=== PATIENT | male | born 1975 | race Caucasian/White ===

== ENCOUNTER 2019-05-13 11:39 | Inpatient (IN) | payer BC ==
[~2019-05-13] VITALS: Ht 182.9 cm; Wt 130.3 kg
[2019-05-13 13:22] LABS: HEMATOCRIT 45.4 % (42.0-52.0); HEMOGLOBIN 16.2 gm/dL (14.0-18.0); MCH 29.7 pg (26.0-34.0); MCHC 35.7 g/dL (28.0-37.0); MCV 83.2 fL (80.0-100.0); MPV 8.4 fl. (7.2-11.1); RBC 5.46 mil/uL (4.50-6.00); RDW-CV 13.4 % (10.5-14.5); WBC 7.6 thou/uL (4.0-11.0)
[2019-05-13 13:32] VITALS: BP 123/90
[2019-05-13 13:32] LABS: APTT 29.8 Seconds (25.0-31.3); PROTIME 10.7 Seconds (9.20-11.50)
[2019-05-13 13:34] LABS: ANION GAP 9 mmol/L (7-16); BUN 10 mg/dL (7-18); CALCIUM 9.2 mg/dL (8.5-10.1); CHLORIDE 105 mmol/L (98-107); CO2 27 mmol/L (21-32); CREATININE 1.1 mg/dL (0.6-1.3); GLUCOSE 90 mg/dL (70-99); POTASSIUM 3.9 mmol/L (3.5-5.1); SODIUM 141 mmol/L (136-145)
[2019-05-13 13:38] LABS: ALBUMIN 4.1 g/dL (3.4-5.0); ALKALINE PHOSPHATASE 89 U/L (46-116); MAGNESIUM 2.1 mg/dL (1.8-2.4); SERUM ASSESSMENT Clear; SGOT 16 U/L (15-37); SGPT 36 U/L (30-65); TOTAL BILIRUBIN 0.8 mg/dL (<0.1-1.0); TOTAL PROTEIN 7.7 g/dL (6.4-8.2)
[2019-05-13 13:45] LABS: URINE BILIRUBIN NEGATIVE (Negative); URINE BLOOD NEGATIVE (Negative); URINE CLARITY CLEAR; URINE COLOR YELLOW; URINE GLUCOSE-RANDOM NEGATIVE (Negative); URINE KETONES NEGATIVE (Negative); URINE LEUKOCYTES NEGATIVE (Negative); URINE NITRITE NEGATIVE (Negative); URINE PROTEIN NEGATIVE (Negative); URINE UROBILINOGEN 0.2 E.U./dl (0.2-1.0)
[2019-05-13 13:49] LABS: CHOLESTEROL 156 mg/dL (<200); HDL CHOLESTEROL 53 mg/dL (>40); LDL CHOLESTEROL 86 mg/dL (<100); TC:HDL 2.9 Ratio (Not establshd); TRIGLYCERIDE 88 mg/dL (<150); VLDL 18 mg/dL (<40)
--- NOTE | 2019-05-13 14:22 | EKG ---
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
--- NOTE | 2019-05-13 14:55 | NUR ---
PT ORIENTED TO ROOM AND UNIT. BED LOW AND LOCKED, SIDE RIALS UP X3, CALL LIGHT IN REACH. TELE APPLIED AND ALL DOCUMENTS SIGNED. WILL CONTINUE TO ASSESS.
[2019-05-13 17:19] VITALS: BP 122/81
--- NOTE | 2019-05-13 18:09 | NUR ---
PT REFUSES SCDS, IS ON ORAL AC.
[2019-05-13 20:00] VITALS: BP 114/82
[2019-05-13 23:08] LABS: GLYCOHEMOGLOBIN (HGB A1C) 5.3 % (4.8-5.6)
[2019-05-14 00:35] VITALS: BP 94/57
[2019-05-14 04:00] VITALS: BP 91/54
--- NOTE | 2019-05-14 05:23 | NUR ---
START OF SHIFT FAMILY AT BEDSIDE, PT UP VISITING WITHOUT COMPLAINT. NPO AFTER 0000 FOR STRESS TEST AND CARDIOVERSION D/T AFLUTTER. NO C/O PAIN OR DISCOMFORT NOTED BY PT. CURRENTLY ASLEEP IN BED WITH CALL LIGHT WITHIN REACH.
[2019-05-14 07:23] VITALS: BP 101/62
[2019-05-14 11:30] VITALS: BP 106/66
--- NOTE | 2019-05-14 12:26 | NUR ---
MET WITH PT TO DISCUSS HOME SITUATION/DC PLANNING. PT LIVES WITH , IS INDEPENDENT AND ACTIVE. 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 HE DOESN'T USE ANY EQUIPMENT AND HASN'T HAD HH. PLANS TO RETURN HOME AT DC. DENIES NEEDS. WILL FOLLOW
--- NOTE | 2019-05-14 12:50 | NUR ---
PT OFF UNIT FOR STRESS TEST.
--- NOTE | 2019-05-14 14:32 | EKG ---
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
--- NOTE | 2019-05-14 15:55 | NUR ---
PT RETURNED TO UNIT ANS PLACED BACK ON TELE.
[2019-05-14 16:00] VITALS: BP 114/74
--- NOTE | 2019-05-14 17:51 | NUR ---
PT C/O 11/22 HEADACHE, SPOUSE CONCERNED OF RISK FOR CVA. PT IS IN CONTROLLED AFLUTTER AND ACTICOAGULATED ON XARELTO. CONTACT DR. LAW AND INSTRUCTED TO GET NONCONTRAST CT OF THE HEAD AND CONSULT NEUROLOGY. WILL TRANSPORT PT TO CT AND CONTINUE TO ASSESS.
[2019-05-14 20:10] VITALS: BP 112/59
[2019-05-15] VITALS (16 sets, daily range): BP systolic 103–132; BP diastolic 37–101
--- NOTE | 2019-05-15 05:12 | NUR ---
PT CARE ASSUMED AT 1930. SAT MAINTAINED IN RA. ALERT AND ORIENTED X4. CALL LIGHT WITHIN REACH AND BED IN LOW POSITION. DENIES PAIN AND SOB. HOURLY ROUNDING DONE FOR PT SAFETY.
[2019-05-15] MEDS ORDERED: SORINE 80 MG TA80 M1 PO (10:15)
[2019-05-15] MEDS ORDERED: ELIQUIS5 MG PO (10:15)
--- NOTE | 2019-05-15 10:15 | CARDNUC ---
[place] [address] CARDIAC NUCLEAR IMAGING REPORT Name: CHRISTY MONROE Room: [address] IN [facility]#: [id number] Admission: 05/13/19 Attend Phys: Avel Trejo Discharge: Date of : 71 Date of Service: 05/15/19 1015 Report #: [id number] THIS REPORT FOR: //name// APPROVED REPORT Study performed: 05/13/2019 14:43:00 Indication: 225 Patient Location: In-Patient Room #: 225 Stress Tech: Radha Khan Stress Nurse: Carole Chairez RN NM Tech:SIMON Cooley Ht: 6 ft 0 in Wt: 285 lbs BSA: 2.48 m2 BMI: 38.64 Medical History Medical History: Angina, No history of CAD, Obesity , Aflutter, Lightheaded/Dizziness, Diaphoresis, RVR, SOB. Medications: Eliquis, Sotolol. Allergies: No known drug allergies Cardiac Risk Factors: Age, SOB, Aflutter, RVR. Previous Cardiac Procedures: None Pretest Chest Pain Characteristics: No chest pain Exercise History: Physically active Physical Disabilities: Aflutter/RVR Meds Held (24 hrs): None Resting Data Rest SPECT myocardial perfusion imaging was performed in supine position 30 minutes following the intravenous injection of 35.5 mCi of Tc-99m Sestamibi. Time of rest injection: 08:20 The images were gated to evaluate regional wall motion and calculate left ventricular ejection fraction. Administration Route: IV Administration Site: Right Arm Pharmacologic Stress Pharmacologic stress test was performed by injecting Regadenoson 0.4 mg IV push over 10-15 seconds immediately followed by the intravenous injection of 34.2 mCi of Tc-99m Sestamibi. Time of stress injection: 1335 Date: 05/14/2019 Administration Route: [place] [address] CARDIAC NUCLEAR IMAGING REPORT Name: CHRISTY MONROE Room: [address] IN [facility].#: [id number] Admission: 05/13/19 Attend Phys: Avel Trejo Discharge: Date of : 71 Date of Service: 05/15/19 1015 Report #: [id number] Administration Site: Right Arm Gated Stress SPECT was performed 40 minutes after stress injection. The images were gated to evaluate regional wall motion and calculate left ventricular ejection fraction. Prone imaging was performed. Stress Test Details Stress Test: Pharmacologic stress testing performed using 0.4 mg of regadenoson per 5 mL given IV over 10 seconds. Reason for pharmacologic stress test: Aflutter, RVR.. HR Max Heart Rate (APMHR): 175 bpm Resting HR: 75 bpm Target HR (85% APMHR): 148 bpm Max HR Achieved: 133 bpm % of APMHR: 76 Recovery HR: 105 bpm BP Resting BP: 120/80 mmHg Max BP: 116/92 mmHg Recovery BP: 115/88 mmHg ECG Resting ECG: Atrial Flutter Stress ECG: Atrial Flutter ST Change: None Recovery ECG: Atrial Flutter Recovery ST Change: None Clinical Reason for Termination: Completed protocol Stress Symptoms: Difficulty breathing, Feet tingling, Thighs achy, Dizziness/Lightheaded. Exercise duration: 00 min 00 sec Exercise capacity: 1.00 METs The patient tolerated Lexiscan infusion without significant cardiac symptoms. Nurse Comments A 43 year old male inpatient presented for sitting Lexiscan r/t new onset Aflutter/RVR with dizziness and diaphoresis. Patient tolerated test well. Recovery unremarkable with PO caffeine, effective. Patient was escorted by staff to Nuclear Medicine for images. Patient was stable with no complaints at that time[place] [address] CARDIAC NUCLEAR IMAGING REPORT Name: CHRISTY MONROE Room: [address]#: [id number] Admission: 05/13/19 Attend Phys: Avel Trejo Discharge: Date of : 71 Date of Service: 05/15/19 1015 Report #: [id number] The baseline 12-lead EKG shows atrial flutter with 3-1 conduction. EKGs obtained during and post Lexiscan infusion show atrial flutter with 2131 conduction. There were no significant ST segment changes noted. Study Quality Study: Good Artifact: Mild Diaphragmatic artifact Study Data At rest, the left ventricular ejection fraction was 43%.. Post stress, the left ventricular ejection was 51%.. TID = 1.00. Perfusion Perfusion images obtained in the supine position at rest and post Lexiscan stress show a moderate region of mild photopenia in the inferior wall that resolves completely with post stress prone imaging suggesting diaphragmatic attenuation artifact. No other significant fixed or reversible defects were noted. Wall Motion There is mild global hypokinesis. Left ventricular systolic function mildly decreased. Nuclear Conclusion ECG Findings: negative for ischemia Clinical Findings: negative for ischemia Nuclear Findings: negative for ischemia Exercise Capacity: not assessed Left Ventricular Function: abnormal Risk Study: low Myocardial perfusion images show no defect to suggest infarct or ischemia. Left ventricular systolic function is mildly decreased. This is not a high risk study. <Conclusion> The baseline 12-lead EKG shows atrial flutter with 3-1 conduction. EKGs obtained during and post Lexiscan infusion show atrial flutter with 2131 conduction. There were no significant ST segment changes noted. <ELECTRONICALLY SIGNED> By: Morgan Gutiérrez MD, FACC 05/15/19 1015 1015 1015 Morgan Gutiérrez MD, FACC /INF
--- NOTE | 2019-05-15 10:51 | TEE ---
[place] [address] TRANSESOPHAGEAL ECHOCARDIOGRAM Name: CHRISTY MONROE Room: [address] IN [facility]#: [id number] Admission: 05/13/19 Attend Phys: Avel Trejo Discharge: Date of : 71 Date of Service: 05/15/19 1051 Report #: [id number] THIS REPORT FOR: //name// APPROVED REPORT Study performed: 05/15/2019 09:32:02 EXAM: Comprehensive 2D, Doppler, and color-flow Echocardiogram Patient Location: In-Patient Room #: [facility] Status: routine BSA: 2.48 HR: 108 bpm BP: 132/101 mmHg Rhythm: Atrial Flutter Other Information Study Quality: Good Indications Atrial Fibrillation Echo Enhancing Agent Indication: Rule out Shunt Agent(s) / Amount(s) Used: Agitated Saline 10 cc Procedure After obtaining informed consent, patient underwent transesophageal echo in the [facility]. Type of Sedation : Conscious Sedation Sedation was administered by Fariha Virgen RN. Sedation start time: 954 Case end Time: 1005 Sedation was achieved intravenously with: Versed (4) Fentanyl (100) Transesophageal probe was inserted and advanced into esophagus without difficulty by Morgan Gutiérrez MD, FACC. Echo enhancement indication: R/O Septal defect. Echo enhancement agent administered: Agitated Saline The DENISE was performed without complications. Synchronized Cardioversion acheived with 300 Joules after 1 attempt(s). Rhythm following Synchronized Cardioversion: Normal Sinus Rhythm Throughout the procedure, the blood pressure, pulse oximetry, cardiac rhythm, [place] [address] TRANSESOPHAGEAL ECHOCARDIOGRAM Name: CHRISTY MONROE Sallie Room: [address] IN [facility]#: [id number] Admission: 05/13/19 Attend Phys: Avel Trejo Discharge: Date of : 71 Date of Service: 05/15/19 1051 Report #: [id number] The patient tolerated the procedure without adverse effects. Recovery from conscious sedation was uneventful and vital signs were stable. Left Ventricle The left ventricle is normal size. There is moderate global hypokinesis. There is normal left ventricular wall thickness. Left ventricular systolic function is moderately decreased. LVEF is 30-35%. Right Ventricle The right ventricle is normal size. The right ventricular systolic function is normal. Atria The left atrium size is normal. No thrombus is visualized in the left atrium or appendage. Interatrial septum is intact without evidence of ASD or PFO. The right atrium size is normal. Aortic Valve The aortic valve is normal in structure. No aortic regurgitation is present. There is no aortic valvular stenosis. Mitral Valve The mitral valve is normal in structure. Trace to mild mitral regurgitation. No evidence of mitral valve stenosis. Tricuspid Valve The tricuspid valve is normal in structure. There is no tricuspid valve regurgitation noted. Pulmonic Valve The pulmonary valve is normal in structure. There is no pulmonic valvular regurgitation. Great Vessels The aortic root is normal in size. Pericardium There is no pericardial effusion. <Conclusion> The left ventricle is normal size. There is normal left ventricular wall thickness. Left ventricular systolic function is moderately decreased. LVEF is 30-35%. [place] [address] TRANSESOPHAGEAL ECHOCARDIOGRAM Name: CHRISTY MONROE Room: [address] IN .R.#: [id number] Admission: 05/13/19 Attend Phys: Avel Trejo Discharge: Date of : 71 Date of Service: 05/15/191050 Report #: [id number] There is moderate global hypokinesis. Interatrial septum is intact without evidence of ASD or PFO. No thrombus is visualized in the left atrium or appendage. Trace to mild mitral regurgitation. <ELECTRONICALLY SIGNED> By: Morgan Gutiérrez MD, FACC 05/15/191050 50 50 Morgan Gutiérrez MD, FACC /INF
--- NOTE | 2019-05-15 11:26 | EKG ---
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1975 Requested By: Altagracia Ross Order Number: [id number] Pranay MD: Morgan Gutiérrez Measurements Intervals [employer] [place] Rate: 67 P: [place]: QRS: 55 QRSD: 122 T: 47 QT: 466 QTc: 492 Interpretive Statements Atrial flutter with predominant 4:[address] elevation, anterior leads Lateral leads are also involved Compared to ECG 05/14/2019 09:08:00 Intraventricular conduction delay now present Electronically Signed On 05-15-2019 11:26:22 CDT by Morgan Gutiérrez [email or web address] <ELECTRONICALLY SIGNED> By: Morgan Gutiérrez MD, FACC 05/15/19 1126 7 7 Morgan Gutiérrez MD, FACC /EPI
--- NOTE | 2019-05-15 11:28 | NUR ---
ASSUMED CARE OF PATIENT THIS AM AT 0730. PATIENT IS ALERT AND ORIENTED X 4. HE DENIES PAIN AND DISCOMFORT. PATIENT KEPT NPO FOR 2ND HALF OF STRESS TEST AND CARDIOVERSION. PATIENT TAKEN TO NUCLEAR MED THIS AM FOR STRESS TEST. HE WAS TAKEN TO CARDIOLOGY AFTER STRESS TEST FOR CARDIOVERSION. TELE WAS SHOWING A FLUTTER.
== END 2019-05-15 14:51 | disposition home or self-care (01) | DRG 310 ==
LOC: M.TBA-CV 11:39 → M.2W 12:18 → M.TBA-CV 12:18 → M.2W 15:19
PROVIDERS: Internal Medicine Cardiovascular Disease; ADMIT Family Medicine
PROC: B24BZZ4 Ultrasonography of Heart with Aorta, Transesophageal (ICD-10-PCS; principal; 2019-05-15)
PROC: 5A2204Z Restoration of Cardiac Rhythm, Single (ICD-10-PCS; principal; 2019-05-15)
DX: I48.92 Unspecified atrial flutter (principal); E66.01 Morbid (severe) obesity due to excess calories; K21.9 Gastro-esophageal reflux disease without esophagitis; I48.91 Unspecified atrial fibrillation; G47.33 Obstructive sleep apnea (adult) (pediatric); I20.9 Angina pectoris, unspecified; Z68.38 Body mass index [BMI] 38.0-38.9, adult; Z82.49 Family history of ischemic heart disease and other diseases of the circulatory system